=== PATIENT | male | born 1955 | race Caucasian/White ===

== ENCOUNTER 2020-10-03 17:42 | Observation (INO) | payer OTHER ==
[~2020-10-03 17:42] MED LIST: Iopamidol-370 76% 500 ML 1 ML ONE
[2020-10-03] MEDS ORDERED: Ondansetron PF 4 MG/2 ML Vial ONE (18:20)
[2020-10-03] MEDS ORDERED: Morphine 4 MG/ML VIAL ONE ×2 (18:20→20:02)
[2020-10-03 18:27] LABS: #Monocytes 1.2 thou/uL (0.11-0.59); %Basophils 0.3 % (0.0-1.0); %Eosinophils 0.2 % (0.0-10.0); %Lymphocytes 9.1 % (21.0-51.0); %Neutrophils 79.4 % (42.0-75.0); Hemoglobin 18.8 g/dL (14.0-18.0); Mean Corpuscular HGB CONC 32.5 g/dL (32.0-36.0); Mean Corpuscular Hemoglobin 31.2 pg (27.0-31.0); Mean Corpuscular Volume 96.1 fL (78.0-98.0); Mean Platelet Volume 7.3 fL (7.4-10.4); Platelet Count 163 thou/uL (130-400); RBC Distribution Width 12.3 % (11.5-14.5); Red Blood Cell (RBC) Count 6.04 mill/uL (4.70-6.10); White Blood Cell (WBC) Count 11.3 thou/uL (4.8-10.8)
[2020-10-03 18:49] LABS: ALT (SGPT) 25 U/L (8-55); AST (SGOT) 23 U/L (5-34); Albumin 4.1 g/dL (3.4-4.8); Alkaline Phosphatase 112 U/L (40-110); Anion Gap 17 mmol/L (10-20); BUN (Urea Nitrogen) 12 mg/dL (8.4-25.7); Bilirubin, Total 1.4 mg/dL (0.2-1.2); CK (CPK) 32 U/L (30-200); Calc. Creatinine Clearance 0 mL/min (70-130); Calcium 9.3 mg/dL (7.8-10.44); Carbon Dioxide 25 mmol/L (23-31); Chloride 97 mmol/L (98-107); Estimated GFR-MDRD 67; Glucose 217 mg/dL (80-115); Lipase 16 U/L (8-78); Potassium 3.7 mmol/L (3.5-5.1); Protein, Total 7.1 g/dL (5.8-8.1); Sodium 135 mmol/L (136-145)
--- NOTE | 2020-10-03 19:19 | RAD ---
CHEST ONE VIEW: 10/03/20 HISTORY: Status post fall. Patient fell two days ago. Right anterior chest pain. FINDINGS: Normal cardiac silhouette. Pulmonary vessels and hilum are normal. Costophrenic angles are clear. No consolidation or mass. Lung volumes are diminished, likely due to a poor inspiratory effort. There is no pneumothorax or acute osseous abnormality. IMPRESSION: No acute cardiopulmonary process. If there is concern for rib injury, dedicated right rib radiograph series can be performed. POS: PPP
--- NOTE | 2020-10-03 20:59 | CT ---
CT ANGIOGRAM OF THE CHEST: CT OF THE THORACIC SPINE: 10/03/20 HISTORY: Fall two days ago. Chest pain, progressively worsening. COMPARISON: 09/02/20. TECHNIQUE: CT angiogram of the chest is performed in the axial plane. Three dimensional reformatted images are s ubmitted for interpretation. FINDINGS: CT ANGIOGRAM OF THE CHEST: No mediastinal mass, lymphadenopathy or hematoma. Normal heart size. No significant pericardial fluid . There are minimal coronary artery calcifications. The thoracic aorta and upper abdominal aorta have a normal caliber. No periaortic fat stranding. No posttraumatic change in the subdiaphragmatic structures. Limited evaluation of the pulmonary arterial system due to timing of contrast bolus. No obvious centr al filling defect to suggest a central pulmonary artery embolism. Evaluation of the lobar, segmental and subsegmental arteries is limited. Trachea and central bronchi are patent. Minimal atelectatic changes in both lower lobes. No masses or consolidation. No evidence of contusion. No pneumothorax or pleural effusions. OSSEOUS STRUCTURES: Intact sternum. Clavicles are intact. There is no right scapula fracture. There is a healing left sca pula fracture. The proximal left and right humerus are also intact. There are fractures involving the right anterior third rib, fourth rib, lateral right fifth rib, late ral right sixth, seventh, eighth ribs. There are fractures involving the posterior left fourth, fifth, sixth, seventh, eighth ribs. There ar e also fractures on the lateral fifth, sixth, and seventh ribs. The left rib fractures demonstrate mi ld callus formation suggesting possibly subacute fractures. The right rib fractures do not demonstrat e callus formation suggesting acute injury. CT OF THE THORACIC SPINE: Thoracic spine vertebral body heights are maintained. No malalignment or fracture. IMPRESSION: 1. Limited evaluation of the pulmonary arterial system to the level of central arteries. No fill ing defect. Evaluation of the lobar, segmental and subsegmental arteries is limited. 2. Acute right rib fractures. Probable subacute left rib fractures. The posterior rib fractures were present on the previous CT. The lateral rib fractures at the fifth through seventh ribs were no t present on the previous CT. 3. No evidence of a thoracic spine fracture. POS: PPP
[2020-10-03] MEDS ORDERED: Ketorolac Tromethamine 30 MG/ML VIAL ONE (21:15)
[2020-10-03] MEDS ORDERED: Morphine 2 MG/ML VIAL SLOW IVP PRN (21:26)
[2020-10-03] MEDS ORDERED: HumaLOG 300 UNITS/3 ML VIAL SC PRN (21:26)
[2020-10-03] MEDS ORDERED: Dextrose 5% in Water 1,000 ML IV PRN (21:26)
[2020-10-03] MEDS ORDERED: Dextrose 50% Abboject 50 ML SYRINGE SLOW IVP PRN (21:26)
[2020-10-03] MEDS ORDERED: Ondansetron PF 4 MG/2 ML Vial IVP PRN (21:26)
[2020-10-03] MEDS ORDERED: Rib Fracture Protocol PO SCH (21:30)
[2020-10-03] MEDS ORDERED: Bisacodyl 5 MG TAB PO PRN (21:31)
[2020-10-03 23:01] LABS: Hemoglobin A1c 5.5 % (4.0-6.0)
--- NOTE | 2020-10-04 00:26 | HP ---
CRITICAL CARE/TRAUMA ATTENDING: Roverto Hodge MD. PRIMARY CARE PHYSICIAN: Dr. Paul. HISTORY OF PRESENT ILLNESS: Mr. Mckeon is a 64-year-old male with past medical history of hypertension, depression, recent fall with multiple left-sided rib fractures in August of this year, resulting in admission at [facility], presenting to the emergency department today by POV with a chief complaint of a fall two days ago. The patient states that he was going outside to get his dogs and grandson, missed the last step on his house resulting in a fall. Had immediate right-sided pain, thought he could wait out. Today, the pain got so severe that he presented to the emergency department. In the emergency department, the chest x-ray was equivocal, but it was a poor technique film. CT chest demonstrated healing left side rib fractures as well as CT demonstrated fractures in the 3rd, 4th, 5th anterior right rib and the lateral 6th, 7th, and 8th rib. The patient had minimal atelectasis. No PE noted. Troponin was negative. He is saturating 92% to 95% on room air. His IS, he is actually able to get 3 L. He has no other complaints. Did not strike his head. Did not lose consciousness. No neck pain. No belly pain. No nausea. No vomiting. No other chest pain aside from the rib pain. He really does not report any shortness of breath. No recent illness. No fever. He has been given a total of 8 mg of morphine and 30 of Toradol with good pain relief. He is getting an IV, but I believe his current IV is infiltrated. REVIEW OF SYSTEMS: Pertinent positive and negative per HPI, otherwise regarded as negative. PAST MEDICAL HISTORY: Significant for: 1. Hypertension. 2. Depression. 3. Rib fractures. PAST SURGICAL HISTORY: 1. Lower back surgery. 2. Right knee surgery. MEDICATIONS: 1. Lisinopril and hydrochlorothiazide 20/12.5. 2. Fluoxetine 10 mg daily. 3. Flexeril as needed. 4. Dulcolax 10 mg as needed. 5. Amlodipine 5 mg daily. 6. Tylenol 1000 every 6. 7. Tramadol 100 every 6 as needed. 8. Lidocaine patch 5% as needed. 9. Ibuprofen 800 every 8 as needed. 10. Aspirin 324 mg daily. ALLERGIES: NO KNOWN DRUG ALLERGIES. FAMILY HISTORY: Significant for ovarian cancer causing of his mother. Father of lung cancer. He had service and COPD. He was a lifelong smoker. SOCIAL HISTORY: The patient is , but is close to his and his daughter. He actually takes care of his 11-year-old grandson. He lives alone. 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 He was preparing to return to work after his previous fall. He does drink alcohol, a total of two cases weekly. He has never withdrawn from alcohol in the past. No smoking or tobacco. PHYSICAL EXAMINATION: VITAL SIGNS: Today, temperature is 98.0, blood pressure 132/75, heart rate is 80, saturating 94%, and breathing 22 times a minute. GENERAL: A 64-year-old male, sitting up, in no acute distress. Nontoxic appearing. HEENT: Normocephalic and atraumatic. Trachea is midline. No JVD is appreciated. He does have slight injected conjunctiva, pink mucosa. No nissa JVD. RESPIRATORY: Equal rise and fall. Does have some splinting noted, but no rubs or wheezes. He has no crepitus. No subcu air is appreciated. CARDIOVASCULAR: He has regular rate and rhythm. Possibly slight grade 1 systolic murmur, not clearly defined. He has strong pulses. No edema. ABDOMEN: Protuberant, but soft and nontender. No masses, guarding, or rigidity. Pelvis is stable. MUSCULOSKELETAL: He is able to move his extremities well. He does have some, I believe, infiltration from his IV in his right upper extremity. NEUROLOGIC: Alert and oriented to person, place, time, and event. GCS is 15. PSYCHIATRIC: Normal mood and affect. SKIN: Warm and dry. DIAGNOSTIC STUDIES: Diagnostic criteria today, laboratory, white blood cell count is 11.3, platelets 163, hemoglobin and hematocrit are 18.8 and 58.8 respectively. Sodium is 135, potassium 3.7, chloride is 97, CO2 is 25, BUN is 12, creatinine 1.11, glucose is 217, total bilirubin is 1.4. AST and ALT are 23 and 25 respectively, alkaline phosphatase is 112. Troponin is less than 0.01. Lipase is 16. His D-dimer was 0.37. His chest x-ray was equivocal, but it was a poor inspiratory and over exposed film. CTA of the chest demonstrates multiple left rib fractures, right anterior 3rd, 4th, and 5th rib, lateral right 6th, 7th, and 8th rib. He does have fractures with callus formation on the left side. No large PE but timing was poor. No spine fractures. ASSESSMENT: 1. Fall with delayed presentation. 2. Multiple right-sided rib fractures. 3. Acute traumatic pain. 4. History of depression and recent mechanical fall. 5. Hyperglycemia without evidence of diabetes. PLAN: 1. We will admit the patient to the surgery street under observation. 2. Rib fracture protocol. 3. Morphine as needed for breakthrough pain. 4. IS, he is currently getting 3000. 5. . 6. PT/OT eval. 7. I have discussed with the patient rehab placement. He is not terribly interested in this right now. We will see how he does overnight and re-evaluate in the morning as he has had two falls. 8. Famotidine for GI prophylaxis. 9. We will start Lovenox. There is no evidence of hemothorax on chest x-ray or CT today. 10. Oxygen as needed to maintain SpO2. 11. Check hemoglobin A1c. 12. [id number] glucose and sliding scale insulin as needed. 13. Recheck labs in the morning. 14. Asked the nurse to replace the IV. We will do 1 L of fluid given his hemoconcentration likely. 15. Full code. 16. Access of peripheral IV. 17. Prophylaxis will be Lovenox, famotidine, and SCDs. 18. We will monitor for signs of alcohol withdrawal. Never withdrawn in the past. 19. Diet will be a carb consistent diet. 20. Disposition is surgery street. 21. Activity is up with assistance. 22. I have updated the patient at the bedside. There is no family to update. I have answered all questions. I have coordinated with emergency department staff. Job ID: [id number]
[2020-10-04] MEDS: Acetaminophen 500 MG TAB PO SCH ×5 (01:15→23:36)
[2020-10-04] MEDS: traMADol HCl 50 MG TAB PO SCH ×5 (01:17→23:37)
[2020-10-04] MEDS: Cyclobenzaprine 10 MG TAB PO PRN ×3 (01:18→20:18)
[2020-10-04 06:45] LABS: Phosphorus 4.1 mg/dL (2.3-4.7)
[2020-10-04 06:46] LABS: Anion Gap 13 mmol/L (10-20); BUN (Urea Nitrogen) 14 mg/dL (8.4-25.7); Calc. Creatinine Clearance 171 mL/min (70-130); Calcium 8.6 mg/dL (7.8-10.44); Carbon Dioxide 24 mmol/L (23-31); Chloride 100 mmol/L (98-107); Estimated GFR-MDRD Greater than 90; Glucose 116 mg/dL (80-115); Magnesium 1.9 mg/dL (1.6-2.6); Potassium 3.3 mmol/L (3.5-5.1); Sodium 134 mmol/L (136-145)
[2020-10-04] MEDS: Ibuprofen 800 MG TAB PO SCH ×3 (07:13→21:39)
[2020-10-04 07:37] LABS: Hemoglobin 17.4 g/dL (14.0-18.0); Mean Corpuscular HGB CONC 34.6 g/dL (32.0-36.0); Mean Corpuscular Volume 98.1 fL (78.0-98.0); Mean Platelet Volume 7.5 fL (7.4-10.4); Platelet Count 135 thou/uL (130-400); RBC Distribution Width 12.1 % (11.5-14.5); Red Blood Cell (RBC) Count 5.12 mill/uL (4.70-6.10); White Blood Cell (WBC) Count 8.7 thou/uL (4.8-10.8)
[2020-10-04 08:27] LABS: Eosinophils 2 % (0-10); Lymphocytes 11 % (21-51); MDiff Complete? YES; Monocytes 15 % (0-10); Neutrophil 70 % (42-75); Platelet Morphology Comment Appears Adequate; Reactive Lymphocytes 2 % (0-10)
[2020-10-04] MEDS ORDERED: Magnesium 2 GM/50 ML 2 GM in Premix Bag 1 BAG IVPB SCH (08:45)
[2020-10-04] MEDS ORDERED: Potassium Chloride 20 MEQ TAB PO SCH (08:45)
[2020-10-04] MEDS: Enoxaparin Sodium 40 MG/0.4 ML SYRINGE SC SCH (09:07)
[2020-10-04] MEDS: Gabapentin 300 MG CAP PO SCH ×3 (09:07→20:10)
[2020-10-04] MEDS: Folic Acid 1 MG TAB PO SCH (09:07)
[2020-10-04] MEDS: FLUoxetine HCl 10 MG CAP PO SCH (09:07)
[2020-10-04] MEDS: Lisinopril/Hydrochlorothiazide 20 mg/12.5 mg Tablet PO SCH (09:07)
[2020-10-04] MEDS: Famotidine 20 MG TAB PO SCH ×2 (09:08→20:10)
[2020-10-04] MEDS: Senokot S 8.6-50 MG TAB PO SCH ×2 (09:08→20:12)
[2020-10-04] MEDS: Amlodipine 5 MG TAB PO SCH (09:08)
--- NOTE | 2020-10-04 09:15 | PRG ---
DATE OF SERVICE: 10/04/2020 Please see Jerod Deutsch's note for full details. Mr. Mckeon is doing well today. He is pulling nearly 3000 on his incentive spirometer. His pain is controlled. He has not been out of bed yet. He has no nausea or vomiting. He states that he is not having any fainting or presyncopal episodes. He has tripped a couple times with these rib fracture falls. The plan is to get Physical Therapy to see him today and make sure he is up and around and steady and then a pain control, to be discharged home. Job ID: [id number]
--- NOTE | 2020-10-04 13:31 | PRG ---
DATE OF SERVICE: 10/04/2020 SUBJECTIVE: Mr. Mckeon admitted overnight with rib fractures, status post mechanical fall. He is actually seen walking around with PT, walked laps around the hallways. States his pain is generally controlled 3/10, although he does still has some pain. He has not received any morphine since being on the surgery street according to the bedside RN. He remains hemodynamically stable. Vital signs are stable. The patient is urinating on his own, tolerating a diet. He is very worried about his pain and going home. At this time, he is pulling 3000 on the IS. SpO2 is preserved. OBJECTIVE: VITAL SIGNS: Temperature is 97.8, blood pressure is 147/88, heart rate is 73, breathing is 16 times per minute, and O2 saturation is 96% on room air. GENERAL: A 64-year-old large male, walking, ambulatory, nontoxic appearing, and in slight distress. HEENT: Normocephalic and atraumatic. RESPIRATORY: Equal rise and fall. Breath sounds are clear. CARDIOVASCULAR: Strong pulses. ABDOMEN: Protuberant, but soft. MUSCULOSKELETAL: Moves extremities well. PSYCH: Normal mood and affect. NEURO: Alert and oriented to person, place, time, and event. GCS is 15. LABORATORY DATA: White blood cell count 8.7, platelets 135, and hemoglobin and hematocrit 17.4 and 50.2 respectively. Sodium is 134, potassium is 3.3, chloride is 100, CO2 is 24, BUN is 14, creatinine is 0.8, glucose is 116, calcium is 8.6, and Mag is 1.9. ASSESSMENT: 1. Fall with left-sided rib fractures. 2. Acute traumatic pain. 3. History of depression and hypertension. PLAN: 1. We will continue pain control. 2. Discussed with the patient discharge today versus continue pain control in the hospital and discharge in the morning. He is worried about going home right now, wanted to do one more day as he was just admitted last night, seems to be appropriate. We will keep him one more day for aggressive pain control as he states that he is in quite a bit of pain today. Continue work with IS. The patient seems to be safe. He is planned for home. Please see H and P. 3. We will continue all other supportive care and likely discharge first thing in the morning. 4. The patient was seen by Dr. Hodge. Please see separate note. Job ID: [id number]
[2020-10-04 20:50] LABS: SARS-CoV-2 MS2 Positive; SARS-CoV-2 N Gene Negative; SARS-CoV-2 S Gene Negative; SARS-CoV-2 by NAA Not Detected (NotDetected); SARS-CoV-2 orf1ab Negative
[2020-10-04] MEDS ORDERED: FLU VACC QS2020-21(6MOS UP)/PF 60 MCG/0.5 ML SYRINGE IM ONE (21:00)
[2020-10-05] MEDS: Ibuprofen 800 MG TAB PO SCH (05:12)
[2020-10-05] MEDS: Acetaminophen 500 MG TAB PO SCH ×2 (05:14→11:23)
[2020-10-05] MEDS: traMADol HCl 50 MG TAB PO SCH ×2 (05:15→11:24)
[2020-10-05] MEDS: Famotidine 20 MG TAB PO SCH (08:50)
[2020-10-05] MEDS: Amlodipine 5 MG TAB PO SCH (08:50)
[2020-10-05] MEDS: Gabapentin 300 MG CAP PO SCH (08:50)
[2020-10-05] MEDS: Senokot S 8.6-50 MG TAB PO SCH (08:50)
[2020-10-05] MEDS: Enoxaparin Sodium 40 MG/0.4 ML SYRINGE SC SCH (08:51)
[2020-10-05] MEDS: FLUoxetine HCl 10 MG CAP PO SCH (08:51)
[2020-10-05] MEDS: Lisinopril/Hydrochlorothiazide 20 mg/12.5 mg Tablet PO SCH (08:51)
[2020-10-05] MEDS: Folic Acid 1 MG TAB PO SCH (08:51)
--- NOTE | 2020-10-05 11:50 | DIS ---
DATE OF ADMISSION: 10/03/2020 DATE OF DISCHARGE: 10/05/2020 This is Jerod Deutsch PA-C dictating a report for Roverto Hodge MD. RESIDENT: Jerod Deutsch PA-C. ADMITTING PHYSICIAN: Roverto Hodge MD. DISCHARGING PHYSICIAN: Roverto Hodge MD. ADMITTING DIAGNOSES: 1. Mechanical fall. 2. Right-sided rib fractures. 3. History of hypertension and previous fall with left-sided rib fractures. DISCHARGE DIAGNOSES: 1. Right-sided rib fractures. 2. Acute traumatic pain. 3. Fall. DISCHARGE MEDICATIONS: 1. Tylenol No. 3 one every 4 hours as needed, #40. 2. Amlodipine 5 mg daily. 3. Dulcolax 10 mg daily. 4. Flexeril 10 mg three times daily as needed. 5. Prozac 10 mg daily. 6. Gabapentin 300 mg three times daily. 7. Lisinopril/hydrochlorothiazide 20/12.5 daily. 8. Ibuprofen 600 mg every 6 hours as needed. 9. Zofran 4 mg every 6 hours as needed. 10. Tramadol 50 mg tabs 1-2 tabs every 6 hours as needed. HOSPITAL COURSE: The patient was admitted to the emergency department with a delayed presentation for a fall. He fell 2 days prior to admission, landing on the right side, severe pain. He was admitted for pain control. On hospital day #1, patient had improved IS, getting over 3000. He is ambulatory, taking care of all of his own ADLs and discussed the etiology of his fall. He slipped on steps that are being repaired this weekend by his family. The patient elected to stay one additional night for increased pain control. He did have a little bit of difficulty with only tramadol. He is requesting some codeine, therefore, he will go home with some Tylenol No. 3 and tramadol. He was advised not to take additional Tylenol with the Tylenol No. 3. and he has verbalized understanding of the same. The patient was getting good on his IS. He is ambulatory, doing all of his own ADLs. Tolerating a diet. He remained hemodynamically stable. He was given the opportunity to ask questions and all these were answered appropriately. The patient verbalized understanding of the same. He can follow up in [facility] in 2 weeks. We will give him a followup and need chest x-ray one day before to confirm healing of the fractures and permitting care. Prescriptions were left in the chart. PHYSICAL EXAMINATION: VITAL SIGNS: On the date of discharge vital signs, temperature is 97.9, blood pressure 147/93, heart rate is 66, breathing 16 times per minute, 95% on room air. GENERAL: This is a 64-year-old male, sitting up in slight pain secondary to rib fractures. HEENT: Normocephalic, atraumatic. RESPIRATORY: Equal rise and fall. Bilateral breath sounds. Clear to auscultation in upper and lower lobes bilaterally, slight splinting is appreciated. CARDIOVASCULAR: Regular rate and rhythm. ABDOMEN: Protuberant. MUSCULOSKELETAL: Moves extremities well. He is ambulatory. NEUROLOGIC: Alert and oriented to person, place, time and event. GCS is 15. PSYCHIATRIC: Normal mood and affect. LABORATORY DATA: No laboratory data to review. No x-rays to review. FOLLOWUP: 1. The patient can follow up with his PCP in 7 days. 2. Follow up with Trauma Clinic in two weeks. 3. The patient is discharged home. 4. He will have a ride home. Greater than 30 minutes was taken in discharge planning of this patient. Job ID: [id number]
[2020-10-05 12:26] VITALS: BP 158/92; TEMP 97.8
== END 2020-10-05 12:42 | disposition home or self-care (01) ==
LOC: ERS 17:42 → SURG A 21:26
PROVIDERS: ADMIT Surgery; ATTEND Surgery
DX: S22.41XA Multiple fractures of ribs, right side, initial encounter for closed fracture (principal); G89.11 Acute pain due to trauma; F32.9 Major depressive disorder, single episode, unspecified; R73.9 Hyperglycemia, unspecified; I10 Essential (primary) hypertension; Z79.82 Long term (current) use of aspirin; Z79.899 Other long term (current) drug therapy; Z20.828 Contact with and (suspected) exposure to other viral communicable diseases; W10.8XXA Fall (on) (from) other stairs and steps, initial encounter
CPT/HCPCS: 36415; 36416; 71045; 71275; 80048; 80053; 82550; 83036; 83690; 83735; 84100; 84484; 85025; 85379; 87635; 93005; 94640; 96365; 96372; 96374; 96375; 96376; G0378; J1650; J1885; J2270; J2405; J3475; J7620; Q9967; U0003

== ENCOUNTER 2020-10-22 15:35 | Outpatient (CLI) | payer MEDICARE ==
--- NOTE | 2020-10-22 16:02 | RAD ---
EXAM: Chest PA and lateral: HISTORY: Rib fracture. COMPARISON: 10/03/2020 Correlation: CT angiogram the chest 10/03/2020 FINDINGS: Heart: Normal cardiac silhouette Aorta: Atherosclerotic none. Pulmonary vessels: Normal Costophrenic angles: Costophrenic angles are clear. Lungs: No consolidation or masses. Pneumothorax: No pneumothorax Osseous structures: Bilateral rib fractures are difficult to appreciate radiographically. Refer to re cent CT angiogram of the chest for further detail. There does appear to be some bony callus formation involving the anterior right seventh rib. IMPRESSION: 1. No acute process 2. No pneumothorax 3. Limited evaluation of known right and left rib fractures.
== END 2020-10-22 15:36 | disposition home or self-care (01) ==
LOC: BICRAD 15:35
PROVIDERS: ATTEND Surgery
DX: S22.32XA Fracture of one rib, left side, initial encounter for closed fracture (principal); S22.31XA Fracture of one rib, right side, initial encounter for closed fracture
CPT/HCPCS: 71046

== ENCOUNTER 2023-01-30 07:56 | Observation (INO) | payer MEDICARE ==
[2023-01-30 08:02] VITALS: BMI 34.9
[2023-01-30] MEDS ORDERED: Ondansetron PF 4 MG/2 ML Vial IVP PRN (08:28)
[2023-01-30] MEDS ORDERED: Acetaminophen 325 MG TAB PO PRN (08:28)
[2023-01-30] MEDS ORDERED: Guaifenesin DM 100-10/5 ML UDCUP PO PRN (08:28)
[2023-01-30] MEDS ORDERED: Senokot S 8.6-50 MG TAB PO PRN (08:28)
[2023-01-30] MEDS: Famotidine/PF 20 mg/2ml Vial SLOW IVP SCH ×2 (09:59→21:01)
[2023-01-30] MEDS: Sodium Chloride 0.9% 1,000 ML IV SCH ×2 (09:59→21:00)
[2023-01-30 10:27] LABS: Bilirubin Negative (Negative); Blood, Urine Negative (Negative); Clarity Clear (Clear); Glucose, Urine (Dipstick) 150 mg/dL (Negative); Ketone, Urine 10 mg/dL (Negative); Leukocyte Negative Leu/uL (Negative); Nitrite Negative (Negative); Protein, Urine (Dipstick) Negative (Neg-Trace); Specific Gravity, Urine 1.003 (1.002-1.036); Urobilinogen Normal mg/dL (Less than 2)
[2023-01-30 10:36] LABS: Amphetamine Not Detected (NotDetected); Barbiturates Screen Not Detected (NotDetected); Benzodiazepine Screen Not Detected (NotDetected); Cocaine Metabolite Screen Not Detected (NotDetected); Methadone Not Detected (NotDetected); Methamphetamine Not Detected (NotDetected); Opiate Screen Not Detected (NotDetected); Oxycodone Screen Not Detected (NotDetected); Phencyclidine (PCP) Not Detected (NotDetected); THC/Cannabinoid Screen Detected (NotDetected); Tricyclic Screen Not Detected (NotDetected)
[2023-01-30 12:14] LABS: Alcohol Less than 10 mg/dL (Less than 10); Anion Gap 15 mmol/L (10-20); BUN (Urea Nitrogen) 6 mg/dL (8.4-25.7); Calc. Creatinine Clearance 203 mL/min (70-130); Calcium 8.6 mg/dL (7.8-10.44); Carbon Dioxide 20 mmol/L (23-31); Chloride 96 mmol/L (98-107); Estimated GFR 103; Glucose 185 mg/dL (80-115); Magnesium 1.7 mg/dL (1.6-2.6); Potassium 3.4 mmol/L (3.5-5.1); Sodium 128 mmol/L (136-145)
[2023-01-30 12:15] LABS: Troponin I Less than 0.010 ng/mL (< 0.028)
[2023-01-30] MEDS ORDERED: Potassium Chloride 20 MEQ TAB PO SCH (12:15)
[2023-01-30] MEDS ORDERED: Magnesium 2 GM/50 ML(in water) 2 GM in Premix Bag 1 BAG IVPB SCH (12:15)
[2023-01-30] MEDS ORDERED: Lorazepam 1 MG TAB PO PRN (13:13)
[2023-01-30] MEDS ORDERED: Electrolyte Replacement Protocol 1 EACH FS SCH (13:15)
[2023-01-30] MEDS ORDERED: Folic Acid 1 MG TAB PO SCH (13:30)
[2023-01-30] MEDS ORDERED: Multivit, Therapeutic 1 TAB PO SCH (13:30)
[2023-01-30] MEDS: Lorazepam 1 MG TAB PO SCH ×2 (13:36→18:26)
[2023-01-30] MEDS: Meclizine HCl 25 MG TAB PO SCH ×2 (13:36→21:01)
[2023-01-30] MEDS ORDERED: ISOVUE-370 76%-LOCM 1 ML ONE (15:23)
[2023-01-30 17:00] LABS: #Lymphocytes 0.5 thou/uL (1.20-3.40); #Monocytes 0.4 thou/uL (0.11-0.59); #Neutrophils 4.7 thou/uL (1.40-6.50); %Basophils 0.1 % (0.0-1.0); %Eosinophils 0.1 % (0.0-10.0); %Lymphocytes 8.3 % (21.0-51.0); %Neutrophils 84.5 % (42.0-75.0); Hemoglobin 17.2 g/dL (14.0-18.0); Mean Corpuscular HGB CONC 35.3 g/dL (32.0-36.0); Mean Corpuscular Volume 90.6 fl (78.0-98.0); Mean Platelet Volume 7.2 fL (7.4-10.4); Platelet Count 174 10x3/uL (130-400); RBC Distribution Width 13.3 % (11.5-14.5); Red Blood Cell (RBC) Count 5.37 mill/uL (4.70-6.10); White Blood Cell (WBC) Count 5.6 10x3/uL (4.8-10.8)
[2023-01-30 17:14] LABS: ALT (SGPT) 25 U/L (8-55); AST (SGOT) 22 U/L (5-34); Albumin 3.8 g/dL (3.4-4.8); Alkaline Phosphatase 62 U/L (40-110); Anion Gap 11 mmol/L (10-20); BUN (Urea Nitrogen) 6 mg/dL (8.4-25.7); Bilirubin, Direct 0.2 mg/dL (0.1-0.3); Bilirubin, Total 0.6 mg/dL (0.2-1.2); Calc. Creatinine Clearance 203 mL/min (70-130); Calcium 8.6 mg/dL (7.8-10.44); Carbon Dioxide 21 mmol/L (23-31); Chloride 101 mmol/L (98-107); Estimated GFR 103; Glucose 147 mg/dL (80-115); Magnesium 2.2 mg/dL (1.6-2.6); Potassium 3.8 mmol/L (3.5-5.1); Protein, Total 6.8 g/dL (5.8-8.1); Sodium 129 mmol/L (136-145)
[2023-01-30] MEDS: traMADol HCl 50 MG TAB PO SCH ×2 (18:26→23:15)
[2023-01-30] MEDS: PHOS-NAK 1 PKT PACK PO SCH (23:15)
[2023-01-31] MEDS: Lorazepam 1 MG TAB PO SCH ×2 (01:43→08:36)
[2023-01-31] MEDS: PHOS-NAK 1 PKT PACK PO SCH (01:43)
[2023-01-31 05:38] LABS: #Lymphocytes 1.1 thou/uL (1.20-3.40); #Monocytes 1.3 thou/uL (0.11-0.59); #Neutrophils 8.6 thou/uL (1.40-6.50); %Basophils 0.1 % (0.0-1.0); %Eosinophils 0.2 % (0.0-10.0); %Lymphocytes 9.8 % (21.0-51.0); %Monocytes 12.1 % (0.0-10.0); %Neutrophils 77.8 % (42.0-75.0); Hemoglobin 16.1 g/dL (14.0-18.0); Mean Corpuscular HGB CONC 34.2 g/dL (32.0-36.0); Mean Corpuscular Hemoglobin 31.4 pg (27.0-31.0); Mean Corpuscular Volume 91.7 fl (78.0-98.0); Mean Platelet Volume 7.7 fL (7.4-10.4); Platelet Count 172 10x3/uL (130-400); RBC Distribution Width 13.6 % (11.5-14.5); Red Blood Cell (RBC) Count 5.15 mill/uL (4.70-6.10)
[2023-01-31] MEDS: traMADol HCl 50 MG TAB PO SCH (05:45)
[2023-01-31] MEDS: Meclizine HCl 25 MG TAB PO SCH (05:46)
[2023-01-31 05:58] LABS: Anion Gap 12 mmol/L (10-20); BUN (Urea Nitrogen) 6 mg/dL (8.4-25.7); Calc. Creatinine Clearance 203 mL/min (70-130); Carbon Dioxide 19 mmol/L (23-31); Chloride 104 mmol/L (98-107); Estimated GFR 103; Glucose 112 mg/dL (80-115); Potassium 3.6 mmol/L (3.5-5.1); Sodium 131 mmol/L (136-145)
[2023-01-31 07:57] VITALS: BP 128/63; TEMP 97.6
[2023-01-31] MEDS: Famotidine/PF 20 mg/2ml Vial SLOW IVP SCH (08:36)
[2023-01-31] MEDS ORDERED: Amlodipine 5 MG TAB PO SCH (09:00)
[2023-01-31] MEDS ORDERED: Folic Acid 1 MG TAB PO SCH (09:00)
[2023-01-31] MEDS ORDERED: Lisinopril/Hydrochlorothiazide 20/25 mg Tablet PO SCH (09:00)
[2023-01-31] MEDS ORDERED: FLUoxetine HCl 10 MG CAP PO SCH (09:00)
[2023-01-31] MEDS ORDERED: Multivit, Therapeutic 1 TAB PO SCH (09:00)
[2023-01-31] MEDS ORDERED: Tamsulosin HCl 0.4 MG CAP PO SCH (09:00)
[2023-01-31 10:45] LABS: Syphilis Antibody Nonreactive (Nonreactive); Syphilis Antibody Index 0.06 S/CO (<1.00 Non-Reactive)
[2023-01-31] MEDS ORDERED: Lorazepam 1 MG TAB PO PRN (13:13)
[2023-02-01] MEDS ORDERED: Lorazepam 1 MG TAB PO PRN (13:13)
[2023-02-01] MEDS ORDERED: Lorazepam 0.5 MG TAB PO SCH (13:15)
[2023-02-02] MEDS ORDERED: Lorazepam 0.5 MG TAB PO PRN (13:13)
[2023-02-02] MEDS ORDERED: Thiamine 100 MG TAB PO SCH (13:15)
== END 2023-01-31 12:20 | disposition home or self-care (01) ==
LOC: 2NO 07:56
PROVIDERS: ADMIT Hospitalist; ATTEND Hospitalist
DX: R42 Dizziness and giddiness (principal); E87.1 Hypo-osmolality and hyponatremia; I10 Essential (primary) hypertension; R10.9 Unspecified abdominal pain; F17.290 Nicotine dependence, other tobacco product, uncomplicated; Z79.899 Other long term (current) drug therapy; Z20.822 Contact with and (suspected) exposure to COVID-19
CPT/HCPCS: 70496; 70498; 80048 ×2; 80053; 80306; 80307; 81003; 82248; 83735; 84100; 84443; 84484; 85025 ×2; 85379; 86780; 93005; 93306; 96372 ×2; 96374; 96375; 96376 ×2; G0378 ×2; U0003; U0005; 36415; 93010; J1650; J3475; J7050; Q9966; S0028

== ENCOUNTER 2025-07-26 15:34 | Emergency (ER) | payer MEDICARE ==
[2025-07-26 18:04] LABS: #Basophils 0.03 10x3/uL (0.0-0.2); #Eosinophils 0.04 10x3/uL (0.0-0.7); #Monocytes 1.00 10x3/uL (0.11-0.59); #Neutrophils 5.76 10x3/uL (1.40-6.50); %Basophils 0.4 % (0.0-1.0); %Eosinophils 0.5 % (0.0-10.0); %Lymphocytes 14.8 % (21.0-51.0); %Monocytes 12.5 % (0.0-10.0); %Neutrophils 71.7 % (42.0-75.0); Hematocrit 41.1 % (42.0-52.0); Hemoglobin 14.2 g/dL (14.0-18.0); Mean Corpuscular Hemoglobin 30.5 pg (27.0-31.0); Mean Corpuscular Volume 88.2 fL (78.0-98.0); Platelet Count 134 10x3/uL (130-400); Red Blood Cell (RBC) Count 4.66 mill/uL (4.70-6.10); White Blood Cell (WBC) Count 8.03 10x3/uL (4.8-10.8)
[2025-07-26 18:18] LABS: ALT (SGPT) 20 U/L (Less than 45); AST (SGOT) 32 U/L (11-34); Albumin 4.1 g/dL (3.1-4.5); Alkaline Phosphatase 80 U/L (40-110); Anion Gap 13 mmol/L (10-20); BUN (Urea Nitrogen) 8 mg/dL (8.4-25.7); Bilirubin, Total 0.9 mg/dL (0.3-1.2); Calc. Creatinine Clearance 0 mL/min (70-130); Calcium 9.0 mg/dL (7.8-10.44); Carbon Dioxide 25 mmol/L (23-31); Chloride 102 mmol/L (98-107); Globulin 2.8 g/dL (2.4-3.5); Glucose 112 mg/dL (80-115); Potassium 3.6 mmol/L (3.5-5.1); Sodium 136 mmol/L (136-145)
== END 2025-07-26 18:58 | disposition home or self-care (01) ==
LOC: ERS 15:34
DX: S90.31XA Contusion of right foot, initial encounter (principal); I10 Essential (primary) hypertension; F17.200 Nicotine dependence, unspecified, uncomplicated; Z79.899 Other long term (current) drug therapy; W20.8XXA Other cause of strike by thrown, projected or falling object, initial encounter
CPT/HCPCS: 36415; 80053; 85025; 87040